=== PATIENT | male | born 1980 | race Caucasian/White ===

== ENCOUNTER 2019-09-04 09:28 | Outpatient (CLI) | payer OTHER | END 2019-09-04 23:59 | disposition home or self-care (01) | LOC: RAD 09:28 | PROVIDERS: ATTEND Orthopaedic Surgery | DX: M89.8X8 Other specified disorders of bone, other site (principal); N20.0 Calculus of kidney; M77.31 Calcaneal spur, right foot; M77.32 Calcaneal spur, left foot; M79.89 Other specified soft tissue disorders; M13.80 Other specified arthritis, unspecified site ==

== ENCOUNTER → 2020-05-14 | Outpatient (CLI) | payer OTHER ==
[2020-05-14 11:50] LABS: MICROSCOPIC NOT IND
== END | disposition home or self-care (01) ==
LOC: LAB 11:12
PROVIDERS: ATTEND Orthopaedic Surgery
DX: N20.0 Calculus of kidney (principal); M13.80 Other specified arthritis, unspecified site
CPT/HCPCS: 81003